=== PATIENT | male | born 1980 | race Caucasian/White ===

== ENCOUNTER 2018-05-26 21:53 | Inpatient (IN) ==
--- NOTE | 2018-05-27 02:07 | Internal Med History&Physical ---
<Carlo Longoria - Last Filed: 05/27/18 03:54> Date of Encounter: 05/27/18 Time of Encounter: 02:06 Internal Medicine - H&P: HPI Chief complaint: Abdominal pain Admitted From: Emergency Dept History of present illness: Mr. Cedeño is a 37 year old male presenting with abdominal pain with history of IV drug use, hepatitis. Patient was admitted from [place]. Patient presents with 1-1/2 weeks of abdominal pain. Pain is described as 5 out of 10, intermittent, relieved by positional changes, not associated with food intake. Patient states that he is a IV drug user. His last IV drug use was 2 weeks ago. He states that he shares needles occasionally. He denies fever, chest pain, shortness of breath, diarrhea, constipation, urinary frequency or urgency. He endorses nausea and chills. Patient does state that stool yesterday appeared discolored from usual. An ED CT abdomen pelvis with contrast showed small bowel obstruction and pericholecystic fluid indicating acute cholecystitis. Labs done at ED include Tbili 5.0, Dbili 2.9, Ibili 2.1, AST 145, ALTs 300, alkaline phosphatase 325. Toxicology positive for opiates and phencyclidine, amphetamines, marijuana. Dr. Nicholson consultation and he recommends that Dr. Kathleen see patient tomorrow for ERCP to rule out cholecystitis. Patient is currently afebrile at 97.8 degrees Fahrenheit, blood pressure 121/80, O2 sat 90%, respiratory rate 20. Past Med Surg Social Fam HX - Past Medical History Medical history: no medical history, other Psychiatric history: anxiety, bipolar, depression - Past Surgical History Surgical History: no surgical history - Social History Smoking Status: Current every day smoker Smokeless Tobacco Status: No Alcohol use: none, occasionally Drug use: other Internal Medicine - H&P: Meds No Known Home Drugs 05/26/18 [History] Allergy/AdvReac Type Severity Reaction Status Date / Time No Known Allergies Allergy Verified 02/23/18 23:19 All Systems PM: A 10-system review of systems was performed and is negative for pertinent findings except as documented above in the HPI. - Constitutional Constitutional: anorexia, chills, malaise, weakness, no fever(s) - Cardiovascular Cardiovascular ROS IM: no chest pain, no irregular heart rhythm - Respiratory Respiratory: no cough, no wheezing - Gastrointestinal Gastrointestinal: abdominal pain (Mid epigastric), no change in bowel habits, no constipation, no diarrhea - Neurological Neurological ROS: no dizziness, no headache(s) - Constitutional General appearance: Present: mild distress, A&O X 3, pleasant Exam: . - Head Head exam: Present: atraumatic, normal inspection - Eye Eye exam: Present: EOMI. Absent: conjuntiva pink - Neck Neck exam general surgery: Present: supple, trachea midline - Respiratory Respiratory exam: Present: CTAB - Cardiovascular Cardiovascular exam: Present: RRR, +S1, +S2 - GI/Abdominal GI/Abdominal exam: Present: diminished bowel sounds, distended, tenderness (mid epigastric tenderness 5/10). Absent: guarding, mass, no peritoneal signs - Expanded GI/Abdominal Exam GI/Abdominal exam expanded: Absent: Elizondo's sign - Extremities Exam Extremities exam: Present: normal inspection, warm - Neurological Exam Neurological exam: Present: alert, no focal deficits - Psychiatric Psychiatric exam: Present: normal affect, normal mood - Skin Skin exam: Present: dry, intact, warm. Absent: normal color (Patient appears a little jaundiced.) - Assessment and plan (1) Hepatitis Current Visit: No Status: Acute Assessment and plan: Follow-up pending hepatitis panel ordered by [place]. (2) Cholecystitis Current Visit: Yes Status: Acute Assessment and plan: 37-year-old male presenting with one half week history of abdoimnal pain. CT abdomen showed pericholecystic fluid which may indicate acute cholecystitis. However, patient has negative Elizondo sign and is afebrile with normal white blood cell count. Patient is also an IV drug user so hepatitis may be also a consideration. Abdominal pain that is midepigastric. CT abdomen also showed small bowel obstruction. - ERCP with planned for tomorrow. Patient is nothing by mouth. - Empiric metronidazole and ceftriaxone + IVF ordered for possible cholecystitis - Patient currently states his pain is a 5 out of 10. Is not requesting any pain medications. - Patient is nauseous right now ordered Zofran. - Hepatitis panel was ordered at [place] pending - Time Spent With Patient Total time spent is greater than 50% in coordination of care (as documented) at patient's floor/unit and/or counseling patient: <Renetta Adkins - Last Filed: 05/27/18 06:46> Date of Encounter: 05/27/18 Internal Medicine - H&P: HPI History of present illness: Mr. Cedeño is a 37 year old male All Systems PM: A 10-system review of systems was performed and is negative for pertinent findings except as documented above in the HPI. - Constitutional Vitals: Temp Pulse Resp BP Pulse Ox 98.7 F 77 16 151/84 98 05/27/18 05:02 05/27/18 05:02 05/27/18 05:02 05/27/18 05:02 05/27/18 05:02 Internal Med - H&P Results - Labs CBC & Chem 7: 05/27/18 03:50 05/27/18 03:50 Labs: Short CBC 05/27/18 Range/Units 03:50 WBC 6.7 (4.3-11.1) K/mcL Hgb 13.8 (12.9-16.9) g/dL Hct 40.9 (37.5-50.1) % Plt Count 221 (140-400) K/mcL Neutrophils # 4.5 (1.6-8.9) K/mcL BMP 05/27/18 03:50 Sodium 136 Potassium 4.0 Chloride 103 Carbon Dioxide 28 BUN 4 L Creatinine 0.58 L Glucose 116 H Calcium 8.3 L - Assessment and plan (1) Hepatitis Current Visit: No Status: Acute (2) Cholecystitis Current Visit: Yes Status: Acute (3) IV drug user Current Visit: No Status: Acute Assessment and plan: History of IV drug abuse. Patient reports that he wants to quit abusing heroin. -Consider social service worker consult. (4) DVT prophylaxis Current Visit: Yes Status: Acute Assessment and plan: Subcutaneous heparin - Time Spent With Patient Total time spent is greater than 50% in coordination of care (as documented) at patient's floor/unit and/or counseling patient: - Attending Attestation I performed a history and physical examination of the patient and discussed his management with the resident. I reviewed the resident's note and agree with the documented findings and plan of care.
[2018-05-27] MEDS ORDERED: Ondansetron 4 MG/2 ML VIAL IVP PRN (02:30)
[2018-05-27] MEDS ORDERED: Naloxone 0.4 MG/ML INJ IVP PRN ×2 (02:33→06:31)
[2018-05-27 04:20] LABS: Basophils % 0.4 %; Eosinophils # 0.1 K/mcL (0.0-0.6); Eosinophils % 1.8 %; Hematocrit 40.9 % (37.5-50.1); Hemoglobin 13.8 g/dL (12.9-16.9); Immature Granulocytes % 0.4 % (0-4); Lymphocytes # 1.5 K/mcL (0.6-4.6); Lymphocytes % 22.3 %; Mean Corpuscular HGB Conc 33.7 g/dL (31.6-35.5); Mean Corpuscular Hemoglobin 29.6 pg (28.0-33.3); Mean Corpuscular Volume 87.8 fL (83.0-100.0); Mean Platelet Volume 11.1 fL (9.4-12.4); Monocytes # 0.6 K/mcL (0.0-1.3); Monocytes % 8.3 %; Neutrophils # 4.5 K/mcL (1.6-8.9); Platelet Count 221 K/mcL (140-400); Red Blood Count 4.66 M/mcL (4.19-5.50); Red Cell Distribution Width 14.5 % (11.5-14.5); Segmented Neutrophils % 66.8 %
[2018-05-27 04:38] LABS: BUN/Creatinine Ratio 7 (6-26); Blood Urea Nitrogen 4 mg/dL (6-20); Calcium 8.3 mg/dL (8.6-10.3); Carbon Dioxide 28 mEq/L (23-29); Chloride 103 mEq/L (98-107); Glucose 116 mg/dL (70-105); Osmolality,Calculated 280 (280-300); Sodium 136 mEq/L (136-145); eGFR For Non-African Americans > 60 (> 60)
[2018-05-27] MEDS: 0.9 % Sodium Chloride 1,000 ML IVC SCH ×2 (05:38→13:42)
[2018-05-27 09:10] LABS: Basophils % 0.4 %; Eosinophils # 0.2 K/mcL (0.0-0.6); Eosinophils % 3.2 %; Hematocrit 40.7 % (37.5-50.1); Hemoglobin 13.5 g/dL (12.9-16.9); Immature Granulocytes % 0.4 % (0-4); Lymphocytes # 1.9 K/mcL (0.6-4.6); Lymphocytes % 25.8 %; Mean Corpuscular HGB Conc 33.2 g/dL (31.6-35.5); Mean Corpuscular Hemoglobin 29.2 pg (28.0-33.3); Mean Corpuscular Volume 88.1 fL (83.0-100.0); Mean Platelet Volume 11.3 fL (9.4-12.4); Monocytes # 0.7 K/mcL (0.0-1.3); Monocytes % 10.2 %; Neutrophils # 4.4 K/mcL (1.6-8.9); Platelet Count 214 K/mcL (140-400); Red Blood Count 4.62 M/mcL (4.19-5.50); Red Cell Distribution Width 14.5 % (11.5-14.5)
[2018-05-27] MEDS: *HR* Heparin 5,000 UNIT/ML VIAL SQ SCH ×3 (09:21→23:39)
[2018-05-27] MEDS: MetroNIDAZOLE 500 MG/100 ML 500 MG/100 ML BAG IVPB SCH ×3 (09:21→23:38)
[2018-05-27] MEDS: cefTRIAXone 1,000 MG in Water for inj. (sterile) 20 ML 10 ML IVP SCH (09:21)
[2018-05-27 09:23] LABS: Alanine Aminotransferase 206 Units/L (7-52); Albumin 2.9 g/dL (3.5-5.7); Albumin/Globulin Ratio 0.9 (1.1-2.2); Alkaline Phosphatase 254 Units/L (34-104); Aspartate Amino Transferase 97 Units/L (13-39); BUN/Creatinine Ratio 7 (6-26); Bilirubin,Total 3.6 mg/dL (0.3-1.0); Blood Urea Nitrogen 4 mg/dL (6-20); Calcium 8.4 mg/dL (8.6-10.3); Carbon Dioxide 30 mEq/L (23-29); Chloride 102 mEq/L (98-107); Globulin 3.1 g/dL (2.4-3.5); Glucose 99 mg/dL (70-105); Osmolality,Calculated 277 (280-300); Potassium 3.9 mEq/L (3.5-5.1); Sodium 135 mEq/L (136-145); eGFR For Non-African Americans > 60 (> 60)
[2018-05-27 10:32] LABS: Hepatitis B Core IgM Nonreactive (Nonreactive); Hepatitis B Surface Antigen Nonreactive (Nonreactive)
[2018-05-27 10:34] LABS: Hepatitis A Antibody IgM Reactive (Nonreactive)
[2018-05-27 10:35] LABS: Hepatitis C Virus Antibody Reactive (Nonreactive)
--- NOTE | 2018-05-27 11:17 | Gastroenterology Consult Note ---
<RivasJn Niles - Last Filed: 05/27/18 11:14> Date of Encounter: 05/27/18 Time of Encounter: 09:45 - Assessment and plan (1) Elevated LFTs Current Visit: Yes Status: Acute Assessment and plan: CT A/P showed small bowel obstruction with no transition point, and pericholecystic fluid. No indication of CBD dilation. In the ED TB 5, DB 2.9, AST 145, ALT 300, alk phos 325. Today, TB 3.6, AST 97, ALT 206, alk phos 254. Hepatitis profile to be run from AM labs. Concern for acute Hep A or B. Check RUQ US. Continue to monitor hepatic panel daily. No indication for ERCP at this time. (2) IV drug user Current Visit: No Status: Acute - Time Spent With Patient Total time spent is greater than 50% in coordination of care (as documented) at patient's floor/unit and/or counseling patient: GI History of Present Illness - Data of Consult Patient: new to practice Consult date: 05/27/18 Requesting Physician: Pipe Hoskins MD - Consult Narrative Reason for consult: Abnormal LFTs, elevated bili History of present illness: Mr. Cedeño is a 37 year old male with PMHx of anxiety, bipolar, IV drug abuse who was transferred from [facility] with abdominal pain and elevated LFTs. Patient states the abdominal pain started 1-2 weeks ago, but is improved today. He denies any fever, chills, chest pain, shortness of breath, vomiting, daniele temesis, constipation, diarrhea. CT A/P showed small bowel obstruction with no transition point, and pericholecystic fluid. In the ED TB 5, DB 2.9, AST 145, ALT 300, alk phos 325. Hepatitis profile was drawn at [facility], but results pending.Toxicology positive for opiates, phencyclidine, amphetamines, and marijuana. He reports history of sharing needles. Procedures: None NSAIDs: None Anticoagulation: None Past Med Surg Social Fam HX - Past Medical History Medical history: no medical history, other Psychiatric history: anxiety, bipolar, depression - Past Surgical History Surgical History: no surgical history - Social History Smoking Status: Current every day smoker Smokeless Tobacco Status: No Alcohol use: none, occasionally Drug use: other - Gastrointestinal Gastrointestinal: Present: as per HPI - Constitutional Constitutional: as per HPI - EENT Eyes: as per HPI Ears: Present: as per HPI Nose, mouth and throat: Present: as per HPI - Cardiovascular Cardiovascular ROS: Present: as per HPI - Respiratory Respiratory IM: Present: as per HPI - Genitourinary Genitourinary: Absent: change in color, Urinary frequency - Neurological ROS Neurological GI: Present: as per HPI - Hematologic/Lymphatic Hematologic/Lymphatic pediatric: Present: as per HPI - Musculoskeletal Musculoskeletal ROS GI: Present: as per HPI - Integumentary Integumentary GI: Present: as per HPI - Psychiatric ROS Psychiatric GI: Present: as per HPI - Endocrine Endocrine IM: Present: as per HPI - Constitutional Vitals: Temp Pulse Resp BP Pulse Ox 98.2 F 76 15 117/77 97 05/27/18 07:17 05/27/18 07:17 05/27/18 07:17 05/27/18 07:17 05/27/18 07:17 General appearance: Present: cooperative, A&O X 3, no acute distress, answers questions appropriately - Head Head exam: Present: atraumatic, normocephalic - Eye Eye exam: Present: normal appearance, sclera anicteric - ENT ENT exam: Present: mucous membranes dry - Neck Neck exam general surgery: Present: normal inspection, trachea midline - Respiratory Respiratory exam: Present: CTAB. Absent: rales, rhonchi - Cardiovascular Cardiovascular exam: Present: RRR, +S1, +S2 - GI/Abdominal GI/Abdominal exam: Present: soft, no peritoneal signs. Absent: distended, firm, guarding, tenderness - Rectal Rectal exam: Present: deferred - Extremities Exam Extremities exam: Present: warm - Neurological Exam Neurological exam: Present: no focal deficits - Psychiatric Psychiatric exam: Present: normal affect, normal mood - Skin Skin exam: Present: dry, intact, normal color, warm Results - Labs CBC & Chem 7: 05/27/18 08:35 05/27/18 08:35 Labs: Last Result Calcium 8.4 mg/dL (8.6-10.3) L 05/27/18 08:35 Entire Visit Hgb 13.5 g/dL (12.9-16.9) 05/27/18 08:35 Hct 40.7 % (37.5-50.1) 05/27/18 08:35 Total Bilirubin 3.6 mg/dL (0.3-1.0) H 05/27/18 08:35 AST 97 Units/L (13-39) H 05/27/18 08:35 ALT 206 Units/L (7-52) H 05/27/18 08:35 Consult Discharge Plan - Plan Referrals: NONE,PCP [Primary Care Provider] - <Raz Kathleened - Last Filed: 05/27/18 14:49> Date of Encounter: 05/27/18 Time of Encounter: 14:00 - Time Spent With Patient Total time spent is greater than 50% in coordination of care (as documented) at patient's floor/unit and/or counseling patient: GI History of Present Illness - Data of Consult Requesting Physician: Pipe Hoskins MD - Consult Narrative History of present illness: Mr. Cedeño is a 37 year old male - Constitutional Vitals: Temp Pulse Resp BP Pulse Ox 98.2 F 80 15 106/77 98 05/27/18 10:40 05/27/18 10:40 05/27/18 10:40 05/27/18 10:40 05/27/18 10:40 Results - Labs CBC & Chem 7: 05/27/18 08:35 05/27/18 08:35 Labs: Last Result Calcium 8.4 mg/dL (8.6-10.3) L 05/27/18 08:35 Entire Visit Hgb 13.5 g/dL (12.9-16.9) 05/27/18 08:35 Hct 40.7 % (37.5-50.1) 05/27/18 08:35 Total Bilirubin 3.6 mg/dL (0.3-1.0) H 05/27/18 08:35 AST 97 Units/L (13-39) H 05/27/18 08:35 ALT 206 Units/L (7-52) H 05/27/18 08:35 - Attending Attestation I have personally performed a face to face evaluation on this patient. I have reviewed and agree with the care plan. History and Exam by me shows: Patient seen patient admitted because of abdominal pain and abnormal LFTs. On examination alert and awake does has mild jaundice. Assessment patient with acute hepatitis A and ?C with abnormal LFTs, these are improving Rec: Follow LFTs , symptomatic treatment , follow with GI as an outpatient
[2018-05-28] MEDS: cefTRIAXone 1,000 MG in Water for inj. (sterile) 20 ML 10 ML IVP SCH (09:19)
[2018-05-28] MEDS: MetroNIDAZOLE 500 MG/100 ML 500 MG/100 ML BAG IVPB SCH ×2 (09:19→15:36)
[2018-05-28] MEDS: *HR* Heparin 5,000 UNIT/ML VIAL SQ SCH ×2 (09:20→15:36)
[2018-05-29] MEDS: *HR* Heparin 5,000 UNIT/ML VIAL SQ SCH ×2 (00:16→09:15)
[2018-05-29 06:21] LABS: Albumin/Globulin Ratio 0.9 (1.1-2.2); Bilirubin,Direct 1.2 mg/dL (0.0-0.2); Bilirubin,Indirect 1.3 mg/dL (0.0-1.2); Bilirubin,Total 2.5 mg/dL (0.3-1.0); Globulin 3.2 g/dL (2.4-3.5); Total Protein 6.2 g/dL (6.4-8.9)
[2018-05-29 06:24] VITALS: BP 118/73
--- NOTE | 2018-05-29 07:59 | Internal Med Progress Note ---
Hospitalist Progress Note - Encounter Date of Encounter: 05/28/18 Time of Encounter: 19:00 - Subjective Interval History: SUBJECTIVE: The patient feels better. He continues to have diffuse/mild abdominal pain; without any nausea or vomiting. He has no problem with his diet. Denies chest pain. Denies difficulty breathing, coughing and wheezing. He has normal urination. OBJECTIVE: Skin: Free of rash and discoloration. ENMT: Oral/pharyngeal mucosa is normal in appearance. Eyes: Sclera is white. There is no discharge from eyes. Respiratory: Normal breath sounds; no crackles or wheezes. CV: Heart is regular; no gallop or murmur. GI: Abdomen is mildly tender in all 4 quadrants. There is no palpable mass or visceromegaly. Neuro: There is no focal deficits. ADDITIONAL DATA: His hepatitis A IgM antibody is reactive. His hepatitis C antibody screen is reactive. Hepatitis B testing is negative. ASSESSMENT AND PLAN: Acute hepatitis A in a patient with underlying hepatitis C. Clinically improving. We will check his hepatitis panel tomorrow. We will continue supportive treatment. Cholecystitis. Secondary to the problems mentioned above. See notes from GI service. IV drug user. His appetite he is a and hepatitis C are complication of this problem. - Exam Vitals: Temp Pulse Resp BP Pulse Ox 98.7 F 60 16 118/73 100 05/29/18 06:21 05/29/18 06:21 05/29/18 06:21 05/29/18 06:21 05/29/18 06:21 Exam: xx - Assessment and Plan (1) Hepatitis A Current Visit: Yes Status: Acute (2) Hepatitis C Current Visit: Yes Status: Acute (3) Cholecystitis Current Visit: Yes Status: Acute (4) IV drug user Current Visit: No Status: Acute (5) DVT prophylaxis Current Visit: Yes Status: Acute - Time Spent with Patient Total time spent is greater than 50% in coordination of care (as documented) at patient's floor/unit and/or counseling patient: Internal Medicine: Result - Labs CBC & Chem 7: 05/27/18 08:35 05/27/18 08:35 Labs: Liver Function 05/29/18 Range/Units 05:36 Total Bilirubin 2.5 H (0.3-1.0) mg/dL Direct Bilirubin 1.2 H (0.0-0.2) mg/dL AST 86 H (13-39) Units/L ALT 146 H (7-52) Units/L Alkaline Phosphatase 278 H (34-104) Units/L Albumin 3.0 L (3.5-5.7) g/dL Consult Discharge Plan - Plan Referrals: Magui Mcdonald, SALES PROMOTION MANAGER [Advanced Practice Nurse] -
--- NOTE | 2018-05-29 10:34 | Discharge Summary ---
Orders not resulted at time of discharge: Pending orders 05/30/18 04:00 Hepatic Panel AM 0400 05/31/18 04:00 Hepatic Panel AM 0400 Date of Encounter: 05/29/18 Time of Encounter: 10:31 - Discharge Diagnosis (1) Hepatitis A Priority: Primary Status: Acute Qualifiers: Hepatic coma status: without hepatic coma Qualified Code(s): B15.9 - Hepatitis A without hepatic coma (2) Hepatitis C Priority: Primary Status: Acute Qualifiers: Viral hepatitis chronicity: unspecified Hepatic coma status: without hepatic coma Qualified Code(s): B19.20 - Unspecified viral hepatitis C without hepatic coma (3) Cholecystitis Priority: Primary Status: Acute (4) IV drug user Priority: Secondary Status: Chronic Hospital course: HOSPITAL COURSE: The patient is a 37-year-old male, who has had long-standing history of IV drug use. We got him from [facility] emergency department. He had diffuse abdominal pain in the last 7-10 days preceding this admission. Associated with decreased appetite. CT of abdomen/pelvis with IV contrast shows small bowel obstruction (the varices serious) and pericholecystic fluid indicating acute cholecystitis. Total bilirubin was 5.0; with AST of 145 and ALT at 300. Alk phos was 325. General surgery and GI diseases were consulted. We ordered hepatitis panel. It came positive for acute hepatitis A and hepatitis C. Ultrasound of gallbladder/biliary tree revealed a relatively small gallbladder with thickened wall. We felt that this patient had symptoms/signs secondary to acute hepatitis A; with underlying hepatitis C. We offered him IV fluids. We will repeat his blood tests next day. Bilirubin was only 2.5; with AST of 86, ALT of 146 and alk phos of 278. The patient felt significantly better on the day of discharge. CONDITION AT DISCHARGE: Abdominal pain is gone. He ate breakfast. Denies nausea and vomiting. Denies chest pain and difficulty breathing. Skin: Free of rash and discoloration. Respiratory: Normal breath sounds with no crackles and wheezes bilaterally. CV: Heart is regular with no gallop or murmur. GI: Abdomen is flat and soft with no palpable mass or visceromegaly. Neuro exam: There is no focal deficits. Normal speech, swallowing and gait. SEE DISCHARGE ORDERS/MEDICATIONS.. Time spent discussing smoking cessation with patient: 3 to 10 minutes - Time Spent with Patient Total time spent providing and/or coordinating discharge services: Greater than 30 minutes (35 minutes..) - Discharge Medications Home Medications: No Known Home Drugs 05/26/18 [History] Allergies/Adverse Reactions: Allergy/AdvReac Type Severity Reaction Status Date / Time No Known Allergies Allergy Verified 02/23/18 23:19 Date of admission: 05/27/18 06:31 Primary care physician: PCP NONE Consults: 05/27/18 06:30 Consult to Gastroenterology [CONS] Routine Consulting Provider: Gastroenterology Claudia Reason for Consult: Evaluation for possible choledocholithiasis in the setting of abnormal LFTs and elevated total bilirubin Call Completed: No 05/28/18 16:37 Consult to Cashier Ticket Selling [CONS] Routine Reason for SW Consult: Patient requesting substance abuse resources / treatment options Discharging clinician: Kirill Beasley Anticipated date of discharge: 05/29/18 - Constitutional Vitals: Temp Pulse Resp BP Pulse Ox 98.7 F 60 16 118/73 100 05/29/18 06:21 05/29/18 06:21 05/29/18 06:21 05/29/18 06:21 05/29/18 09:01 General appearance: Present: A&O X 3, answers questions appropriately Exam: xx - Patient Status Disposition: Home, Self-Care Condition: Good Functional capacity at discharge: independent ambulation Overall status at discharge: patient is progressing back to baseline - Discharge Instructions Follow Up With: Magui Mcdonald, BIG DATA ENGINEER [Advanced Practice Nurse] - (The office will call you with a date and time of appointment. Thank you.) Forms: Work/School Release Additional Instructions: FOLLOW-UP WITH A PCP - IN 1-2 WEEKS.. THE PATIENT WAS ADVISED TO QUIT DRUGS; HAS TO BE DRUGS-FREE FOR MINIMUM 3 MONTHS, BEFORE SENDING HIM TO [facility] FOR TREATMENT OF HEPATITIS C.. - Diet and Activity Activity: resume usual activities as tolerated Diet: low fat, low cholesterol - VTE Deep Vein Thrombosis/Pulmonary Embolism Present on Admission: No
== END 2018-05-29 11:24 | disposition home or self-care (01) | DRG 442 ==
LOC: 3ANU → SUATTDRO 05-27 06:31
PROVIDERS: ADMIT Family Medicine; ATTEND Internal Medicine

== ENCOUNTER 2019-11-17 23:36 | Inpatient (IN) ==
[2019-11-18] MEDS ORDERED: Ondansetron 4 MG/2 ML VIAL IVP PRN (02:07)
[2019-11-18] MEDS ORDERED: Naloxone 0.4 MG/ML INJ IVP PRN (02:07)
[2019-11-18] MEDS ORDERED: *HR* Heparin 5,000 UNIT/ML VIAL IVP PRN (02:17)
[2019-11-18] MEDS ORDERED: *HR* Heparin 5,000 UNIT/ML VIAL IVP ONE (02:17)
[2019-11-18] MEDS ORDERED: Vancomycin 1,750 MG/517.5 ML IV.SOLN IVPB ONE (03:00)
[2019-11-18 03:54] LABS: Basophils % 0.2 %; Eosinophils % 0.1 %; Hematocrit 42.3 % (37.5-50.1); Hemoglobin 14.3 g/dL (12.9-16.9); Immature Granulocytes % 0.8 % (0-4); Lymphocytes # 2.2 K/mcL (0.6-4.6); Lymphocytes % 14.3 %; Mean Corpuscular HGB Conc 33.8 g/dL (31.6-35.5); Mean Corpuscular Hemoglobin 31.2 pg (28.0-33.3); Mean Corpuscular Volume 92.2 fL (83.0-100.0); Mean Platelet Volume 10.2 fL (9.4-12.4); Monocytes # 1.3 K/mcL (0.0-1.3); Monocytes % 8.1 %; Platelet Count 191 K/mcL (140-400); Red Blood Count 4.59 M/mcL (4.19-5.50); Red Cell Distribution Width 12.1 % (11.5-14.5); Segmented Neutrophils % 76.5 %; White Blood Count 15.6 K/mcL (4.3-11.1)
[2019-11-18 04:00] LABS: Heparin anti-factor XA UFH 0.36 IU/mL (0.30-0.70)
[2019-11-18 04:01] LABS: INR 1.1; Prothrombin Time 12.7 Seconds (9.4-12.1)
[2019-11-18 04:15] LABS: BUN/Creatinine Ratio 17 (6-26); Blood Urea Nitrogen 17 mg/dL (6-20); Calcium 8.7 mg/dL (8.6-10.3); Carbon Dioxide 24 mEq/L (23-29); Chloride 102 mEq/L (98-107); Glucose 87 mg/dL (70-105); Magnesium 1.9 mg/dL (1.6-2.6); Osmolality,Calculated 277 (280-300); Phosphorous 4.3 mg/dL (2.7-4.5); Potassium 4.3 mEq/L (3.5-5.1); Sodium 133 mEq/L (136-145); eGFR For African Americans > 60 (> 60); eGFR For Non-African Americans > 60 (> 60)
[2019-11-18 04:23] LABS: Troponin I 0.31 ng/mL (< 0.04)
[2019-11-18] MEDS: 0.9 % Sodium Chloride 1,000 ML IVC SCH (04:42)
[2019-11-18] MEDS: Piperacillin/Tazobactam 3.375 GM in 0.9 % Sodium Chloride Mini Bag 100 ML IVPB SCH ×3 (04:58→17:49)
[2019-11-18] MEDS: Heparin 25,000 UNIT/250 ML D5W 25,000 UNIT/250 ML IV.SOLN IVC SCH (05:26)
[2019-11-18] MEDS: *HR* Heparin 5,000 UNIT/ML VIAL IVP PRN ×2 (06:36→20:14)
[2019-11-18] MEDS ORDERED: Aminoglycoside Consult 1 EACH MC ONE (09:16)
[2019-11-18] MEDS: Vancomycin 1,500 MG/265 ML IV.SOLN IVPB SCH (16:00)
[2019-11-19] MEDS: 0.9 % Sodium Chloride 1,000 ML IVC SCH ×3 (00:39→18:58)
[2019-11-19] MEDS: Heparin 25,000 UNIT/250 ML D5W 25,000 UNIT/250 ML IV.SOLN IVC SCH (01:31)
[2019-11-19] MEDS: Piperacillin/Tazobactam 3.375 GM in 0.9 % Sodium Chloride Mini Bag 100 ML IVPB SCH ×3 (02:26→17:43)
[2019-11-19] MEDS: *HR* Heparin 5,000 UNIT/ML VIAL IVP PRN (03:13)
[2019-11-19] MEDS: Vancomycin 1,500 MG/265 ML IV.SOLN IVPB SCH (03:16)
[2019-11-19] MEDS: *HR* Heparin 5,000 UNIT/ML VIAL SQ SCH (17:43)
[2019-11-20] MEDS: Piperacillin/Tazobactam 3.375 GM in 0.9 % Sodium Chloride Mini Bag 100 ML IVPB SCH ×3 (02:08→17:27)
[2019-11-20] MEDS: 0.9 % Sodium Chloride 1,000 ML IVC SCH ×3 (02:13→19:30)
[2019-11-20 02:20] LABS: Basophils % 0.3 %; Eosinophils # 0.1 K/mcL (0.0-0.6); Hematocrit 39.7 % (37.5-50.1); Hemoglobin 13.5 g/dL (12.9-16.9); Immature Granulocytes % 0.5 % (0-4); Lymphocytes # 2.9 K/mcL (0.6-4.6); Lymphocytes % 43.8 %; Mean Corpuscular Hemoglobin 31.3 pg (28.0-33.3); Mean Corpuscular Volume 91.9 fL (83.0-100.0); Mean Platelet Volume 10.5 fL (9.4-12.4); Monocytes # 0.6 K/mcL (0.0-1.3); Monocytes % 9.5 %; Neutrophils # 2.9 K/mcL (1.6-8.9); Platelet Count 164 K/mcL (140-400); Red Blood Count 4.32 M/mcL (4.19-5.50); Red Cell Distribution Width 11.8 % (11.5-14.5); Segmented Neutrophils % 43.9 %
[2019-11-20 02:22] LABS: White Blood Count 6.6 K/mcL (4.3-11.1)
[2019-11-20 02:40] LABS: BUN/Creatinine Ratio 10 (6-26); Blood Urea Nitrogen 8 mg/dL (6-20); Calcium 8.4 mg/dL (8.6-10.3); Carbon Dioxide 28 mEq/L (23-29); Chloride 108 mEq/L (98-107); Glucose 84 mg/dL (70-105); Osmolality,Calculated 292 (280-300); Potassium 3.7 mEq/L (3.5-5.1); Sodium 142 mEq/L (136-145); eGFR For African Americans > 60 (> 60); eGFR For Non-African Americans > 60 (> 60)
[2019-11-20] MEDS: *HR* Heparin 5,000 UNIT/ML VIAL SQ SCH ×2 (05:29→17:27)
[2019-11-21] MEDS: Piperacillin/Tazobactam 3.375 GM in 0.9 % Sodium Chloride Mini Bag 100 ML IVPB SCH ×2 (02:57→09:31)
[2019-11-21] MEDS: *HR* Heparin 5,000 UNIT/ML VIAL SQ SCH (05:39)
[2019-11-21 07:16] VITALS: BP 121/65
== END 2019-11-21 11:21 | disposition home or self-care (01) | DRG 917 ==
LOC: 2ANU 11-18 02:34 → SUATTDRO 11-18 02:34 → EDSTATUS 11-18 02:34
PROVIDERS: ADMIT Internal Medicine; ATTEND Internal Medicine